=== PATIENT | female | born 2005 | race Caucasian/White ===

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

== ENCOUNTER → 2025-01-10 07:45 | Outpatient (CLI) | payer OTHER, SELFPAY ==
--- NOTE | 2025-01-10 07:46 | DI.US.S_ITS ---
US breast RT limited: 01/10/2025. BI-RADS: 4A CLINICAL: 19-year old female for right diagnostic breast ultrasound that is a follow-up to ultrasound, right on 06/19/2024. Tyrer-Cuzick lifetime risk of 10.3%. PRIOR EXAMS 06/19/2024, 10/15/2023. ULTRASOUND TECHNIQUE Real-time quintana scale and color doppler imaging of the area of clinical interest was performed with image documentation. Right targeted breast ultrasound of the area of clinical interest and the axilla was performed with image documentation. ULTRASOUND FINDINGS Right: Lower Outer at 8:00, 11 cm from nipple, measuring 2.5 x 0.7 x 2.1 cm - previously measuring (06/19/2024) 2.2 x 0.6 x 1.4 cm: There is an oval, hypoechoic mass. The mass has increased in size. No abnormal lymph nodes are seen in the axilla. IMPRESSION: Right (Mass): Lower Outer at 8:00, 11 cm from nipple, measuring 2.5 x 0.7 x 2.1 cm - previously measuring (06/19/2024) 2.2 x 0.6 x 1.4 cm * Low Suspicion for Malignancy. RECOMMENDATIONS Right: Lower Outer at 8:00, 11 cm from nipple * Ultrasound-guided biopsy for further evaluation. COMMENTS: Findings and recommendations were conveyed to the patient during today's evaluation by Dr. Salinas. OVERALL ASSESSMENT CATEGORY BI-RADS-4: Suspicious. ELECTRONICALLY SIGNED: Noemí Moreno M.D. on 01/11/2025 at 03:40:39 PM PT Interpreting Station ID: [id number]
== END ==
PROVIDERS: PCP Student in an Organized Health Care Education/Training Program; Referring Provider Nurse Practitioner Family; Visit Provider Nurse Practitioner Family
DX: N63.13 Unspecified lump in the right breast, lower outer quadrant (principal)
CPT/HCPCS: 76642